=== PATIENT | male | born 1975 | race Caucasian/White ===

== ENCOUNTER → 2019-03-03 | Outpatient (CLI) | payer BC ==
--- NOTE | 2019-03-03 11:14 | PCVCIMAG ---
APPROVED REPORT Study performed: 03/03/2019 09:44:18 Exam: Stress Echocardiogram Indication: Chest pain, fam hx cad, Hyperlipidemia Patient Location: Echo lab Stress Nurse: Denia Gomez RN Status: routine Ht: 5 ft 8 in HR: 67 bpm BP: 120/80 mmHg Rhythm: NSR Procedure The patient underwent an Exercise Stress Test using the Maurizio Protocol. Blood pressure, heart rate, and EKG were monitored. An Echocardiogram was performed by extractions technician in four stages in quad fashion. At peak stress, four selected images were obtained and placed side by side with resting images for comparison. Stress Test Details Stress Test: Exercise stress testing was performed using a Maurizio protocol. HR Resting HR: 67 bpmMax Heart Rate (APMHR): 175 bpm Max HR Achieved: 169 bpmTarget HR (85% APMHR): 148 bpm % of APMHR: 96 Recovery HR: 103 bpm HR response to stress: Normal HR response to stress BP Resting BP: 120/80 mmHg Max BP: 146/70 mmHg Recovery BP: 124/74 mmHg BP response to stress: Normal blood pressure response to stress. ECG Resting ECG: Sinus Rhythm Stress ECG: Sinus Rhythm ST Change: Normal Arrhythmia: None Recovery ECG: Sinus Rhythm Recovery ST Change: Normal Recovery Arrhythmia: None Clinical Reason for Termination: Maximal effort Stress Symptoms: Dyspnea Exercise duration: 12 min 34 sec Highest Stage Achieved: Stage 5: 5.0 mph at 18% grade. Exercise capacity: 15.5 METs Overall Exercise Capacity for Age: Excellent Scale: Active Angina Score: None Stress ECG Conclusion 1. Subjectively negative for ischemia 2. Electrocardiographically negative for ischemia 3. Satisfactory functional capacity Pre-Stress Echo The resting Echocardiogram showed normal left ventricular contractility with an estimated Ejection Fraction of about >55%. The resting echocardiogram demonstrated normal wall motion in all wall segments. Post-Stress Echo The stress Echocardiogram showed normal left ventricular contractility with an estimated Ejection Fraction of about 65%. Compared to rest, there were no stress-induced wall motion abnormalities. Clinical No clinical or ECG evidence for ischemia. Conclusion Clinical Response: Non-ischemic Exercise Capacity: Average Stress ECG Response: Non-ischemic Stress Echo Images: Non-ischemic The left ventricle is normal in size and wall thickness in both the rest and stress images. Mild tricuspid regurgitation with PAP of 32 mmHg and mild pulmonic insufficiency. Otherwise no valvular regurgitation or stenosis. 1. Low risk study Other Information Study Quality: Adequate <Conclusion> The left ventricle is normal in size and wall thickness in both the rest and stress images. Mild tricuspid regurgitation with PAP of 32 mmHg and mild pulmonic insufficiency. Otherwise no valvular regurgitation or stenosis. 1. Low risk study
== END | disposition home or self-care (01) ==
LOC: PCVCIMAG 10:21
PROVIDERS: ATTEND Internal Medicine
DX: I08.8 Other rheumatic multiple valve diseases (principal); E78.5 Hyperlipidemia, unspecified
CPT/HCPCS: 93325; 93351